=== PATIENT | female | born 2005 | race Caucasian/White ===

== ENCOUNTER 2025-07-11 20:42 | Observation (INO) | payer MEDICAID, OTHER ==
[2025-07-11] MEDS ORDERED: PREN1TAB71 OR (20:55)
--- NOTE | 2025-07-12 06:12 | DVHDS2 ---
Discharge Summary Date of Admission Jul 11, 2025 at 20:42 Date of Discharge: Jul 11, 2025 Admitting Diagnosis Pelvic pain 37 week rule out labor Wounds: None Labs/Diagnostic Data: None Brief Hx & Hospital Course: Patient had NST performed pelvic exam no sign of labor heart tones reassuring Consults/Reason for consult None Operations or Procedures NST Condition at Discharge: Good Final Diagnosis/Problems List 37+ weeks no labor Discharge Disposition: Home Discharge Instruct/Medications Diet: Regular Activity: Light activity Follow Up/Referral: Pelvic rest labor precautions and kick counts as scheduled primary OB Medications: None Miscellaneous Medications Vit W/ Ferrous Fumara (Pnv Plus Multivi), 1 OR, (Reported) Discharge Statement: "Patient was advised to return to the ER or call 911 if any headaches, di zziness, shortness of breath, chest pain, abdominal pain, bleeding, fevers, or worsening of medical condition. Patient was counseled about treatment plan, medications, possible side effects, patientverbalized understanding. All questions were answered to the best of my ability. This discharge took greater then 30 minutes in planning, reviewing documentation, counseling the patient, and discussing with other team members." ASSESSMENT ASSESSMENT Assessment Visit Coding OBGYN Date of Service: Jul 11, 2025 Billing Provider: ROHITH ARMANDO DO [employer] Common Visit Codes: 88099-VTK/OBS SAME DATE (LOW), 79194-ZTF/OBS SAME DATE (MOD), 39341-RBD/OBS SAME DATE (HIGH) [employer] Procedure Codes: 03909-20- NON-STRESS TEST ROHITH ARMANDO DO Jul 12, 2025 06:12
== END 2025-07-11 22:00 | disposition home or self-care (01) ==
LOC: LDRP 20:42
PROVIDERS: ADMIT Obstetrics & Gynecology; ATTEND Obstetrics & Gynecology
DX: O99.891 Other specified diseases and conditions complicating pregnancy (principal); R10.20 Pelvic and perineal pain unspecified side; Z98.890 Other specified postprocedural states
CPT/HCPCS: 59025; 81002; G0378